=== PATIENT | female | born 1995 | race Caucasian/White ===

== ENCOUNTER 2016-07-23 20:53 | Emergency (ER) | payer OTHER ==
[2016-07-23 22:21] LABS: HEMOGLOBIN 13.4 gm/dl (12.3-15.3); RED BLOOD COUNT 4.6 M/UL (4.00-5.10); WHITE BLOOD COUNT 10.7 K/UL (4.5-11.0)
[2016-07-23 22:40] LABS: BUN/CREATININE RATIO 33 (0-10)
== END 2016-07-24 01:15 | disposition home or self-care (01) ==
LOC: ER1 20:53
PROVIDERS: Specialist/Technologist Athletic Trainer
DX: R10.813 Right lower quadrant abdominal tenderness (principal); F17.210 Nicotine dependence, cigarettes, uncomplicated
CPT/HCPCS: 36415; 80053; 81001; 83690; 84703; 85025; 87086; 96361; 96374; 99284; J1885; J2405; J7050; Q9962

== ENCOUNTER 2016-08-26 21:45 | Emergency (ER) | payer OTHER | END 2016-08-27 00:19 | disposition home or self-care (01) | LOC: ER1 21:45 | DX: L03.116 Cellulitis of left lower limb (principal); F17.200 Nicotine dependence, unspecified, uncomplicated | CPT/HCPCS: 99283 ==